=== PATIENT | female | born 1960 | race Asian ===

== ENCOUNTER 2020-09-17 23:12 | Emergency (ER) | payer OTHER ==
[~2020-09-17] VITALS: Ht 162.6 cm; Wt 120.7 kg
[2020-09-17 23:12] VITALS: TEMP 98.2
[2020-09-17 23:31] LABS: PLATELET COUNT 310 K/uL (152-353)
[2020-09-18] MEDS ORDERED: NEURONTIN800 MG PO (01:10)
[2020-09-18] MEDS ORDERED: MENTHOL 4% EX (01:12)
[2020-09-18] MEDS ORDERED: MAG OXIDE400 MG PO (01:13)
[2020-09-18] MEDS ORDERED: BUSPIRONE15 MG PO (01:14)
[2020-09-18] MEDS ORDERED: IBU400 MG PO (01:15)
[2020-09-18] MEDS ORDERED: HYDR10TA47 PO (01:16)
[2020-09-18] MEDS ORDERED: MILK OF MA400 MG/5 M PO (01:17)
[2020-09-18] MEDS ORDERED: MOBIC15 MG PO (01:18)
[2020-09-18] MEDS ORDERED: LISI20TA11 PO (01:18)
[2020-09-18] MEDS ORDERED: PROTONIX20 MG PO (01:19)
[2020-09-18] MEDS ORDERED: TRAZODONE HYDRO50 MG PO (01:20)
[2020-09-18] MEDS ORDERED: CLOPIDOGREL75 MG PO (01:20)
[2020-09-18] MEDS ORDERED: FLUOXETINE10 M1 PO (01:21)
[2020-09-18] MEDS ORDERED: FURO20TA67 PO (01:21)
[2020-09-18] MEDS ORDERED: AMLODIPINE BESYLATE PO (01:29)
[2020-09-18] MEDS ORDERED: LIPITOR80 MG PO (01:30)
[2020-09-18] MEDS ORDERED: B-121000 MC4 PO (01:31)
== END 2020-09-18 00:30 | disposition still patient (30) ==
LOC: ED 23:12
PROVIDERS: Hospitalist
DX: F32.89 Other specified depressive episodes (principal); R45.851 Suicidal ideations; Z11.52 Encounter for screening for COVID-19; Z04.6 Encounter for general psychiatric examination, requested by authority
CPT/HCPCS: 36415; 80053; 85027; 87635; 93005; 99283; U0003